=== PATIENT | female | born 2000 | race Caucasian/White ===

== ENCOUNTER 2022-02-20 14:07 | Observation (INO) | payer BC ==
[~2022-02-20] VITALS: Ht 160 cm; Wt 63.5 kg
== END 2022-02-20 16:45 | disposition home or self-care (01) ==
LOC: 8 EST LDRP 14:07
PROVIDERS: ADMIT Specialist; ATTEND Specialist
DX: O26.852 Spotting complicating pregnancy, second trimester (principal); Z3A.24 24 weeks gestation of pregnancy
CPT/HCPCS: 59025; 76805; G0378; 99281